=== PATIENT | female | born 1995 | race Caucasian/White ===

== ENCOUNTER → 2022-10-07 10:26 | Outpatient (BNVA) | payer BC, MEDICAID, SELFPAY | PROVIDERS: Visit Provider Nurse Practitioner Women's Health | DX: N92.6 Irregular menstruation, unspecified (principal) | CPT/HCPCS: 81000; 81025 ==

== ENCOUNTER → 2022-10-28 08:02 | Outpatient (BNVA) | payer BC, MEDICAID, SELFPAY | PROVIDERS: Visit Provider Obstetrics & Gynecology | DX: Z36.87 Encounter for antenatal screening for uncertain dates (principal) | CPT/HCPCS: 76817 ==

== ENCOUNTER → 2022-11-14 14:45 | Outpatient (BNVA) | payer BC, MEDICAID, SELFPAY | PROVIDERS: Visit Provider Obstetrics & Gynecology | DX: Z34.80 Encounter for supervision of other normal pregnancy, unspecified trimester (principal); Z78.9 Other specified health status | CPT/HCPCS: 80307; 81000; 87077; 87086; 87184; 87491; 87591; 87661; 88175 ==

== ENCOUNTER → 2022-12-11 10:10 | Outpatient (BNVA) | payer BC, MEDICAID, SELFPAY | PROVIDERS: Visit Provider Nurse Practitioner Women's Health | DX: Z34.80 Encounter for supervision of other normal pregnancy, unspecified trimester (principal); Z78.9 Other specified health status; O98.819 Other maternal infectious and parasitic diseases complicating pregnancy, unspecified trimester; A74.9 Chlamydial infection, unspecified | CPT/HCPCS: 81000; 85027; 86762; 86803; 86850; 86900; 87340; 87806 ==

== ENCOUNTER 2023-01-09 17:04 | Outpatient (CLI) | payer BC, MEDICAID, SELFPAY | END 2023-01-09 17:05 | disposition home or self-care (01) | PROVIDERS: Visit Provider Nurse Practitioner Women's Health | DX: O98.819 Other maternal infectious and parasitic diseases complicating pregnancy, unspecified trimester (principal); A74.9 Chlamydial infection, unspecified; N39.0 Urinary tract infection, site not specified | CPT/HCPCS: 87086; 87491; 87591 ==

== ENCOUNTER → 2023-01-14 09:45 | Outpatient (BNVA) | payer BC, MEDICAID, SELFPAY | PROVIDERS: Visit Provider Obstetrics & Gynecology | DX: Z34.92 Encounter for supervision of normal pregnancy, unspecified, second trimester (principal) | CPT/HCPCS: 76805 ==

== ENCOUNTER → 2023-01-16 09:30 | Outpatient (BNVA) | payer BC, MEDICAID, SELFPAY | PROVIDERS: Visit Provider Obstetrics & Gynecology | DX: Z34.92 Encounter for supervision of normal pregnancy, unspecified, second trimester (principal) | CPT/HCPCS: 81000 ==

== ENCOUNTER → 2023-02-09 14:25 | Outpatient (BNVA) | payer BC, MEDICAID, SELFPAY | PROVIDERS: Visit Provider Obstetrics & Gynecology | DX: Z36.2 Encounter for other antenatal screening follow-up (principal) | CPT/HCPCS: 76816 ==

== ENCOUNTER → 2023-02-11 13:10 | Outpatient (BNVA) | payer BC, MEDICAID, SELFPAY | PROVIDERS: Visit Provider Nurse Practitioner Women's Health | DX: Z34.80 Encounter for supervision of other normal pregnancy, unspecified trimester (principal) | CPT/HCPCS: 81000; 82950 ==

== ENCOUNTER → 2023-02-12 10:24 | Outpatient (BNVA) | payer BC, MEDICAID, SELFPAY | PROVIDERS: Visit Provider Obstetrics & Gynecology | DX: Z36.9 Encounter for antenatal screening, unspecified (principal) | CPT/HCPCS: 76815 ==

== ENCOUNTER → 2023-03-13 10:22 | Outpatient (BNVA) | payer BC, MEDICAID, SELFPAY | PROVIDERS: Visit Provider Obstetrics & Gynecology | DX: Z34.80 Encounter for supervision of other normal pregnancy, unspecified trimester (principal) | CPT/HCPCS: 81000 ==

== ENCOUNTER → 2023-03-27 11:00 | Outpatient (BNVA) | payer BC, MEDICAID, SELFPAY | PROVIDERS: Visit Provider Obstetrics & Gynecology | DX: Z34.80 Encounter for supervision of other normal pregnancy, unspecified trimester (principal) | CPT/HCPCS: 81000 ==

== ENCOUNTER → 2023-04-10 11:10 | Outpatient (BNVA) | payer BC, MEDICAID, SELFPAY | PROVIDERS: Visit Provider Obstetrics & Gynecology | DX: Z34.80 Encounter for supervision of other normal pregnancy, unspecified trimester (principal); R82.90 Unspecified abnormal findings in urine | CPT/HCPCS: 81000; 87086 ==

== ENCOUNTER → 2023-04-21 10:04 | Outpatient (BNVA) | payer BC, MEDICAID, SELFPAY | PROVIDERS: Visit Provider Nurse Practitioner Women's Health | DX: Z34.80 Encounter for supervision of other normal pregnancy, unspecified trimester (principal) | CPT/HCPCS: 81000; 85025; 86592; 87491; 87591; 87661 ==

== ENCOUNTER 2023-05-08 11:03 | Outpatient (CLI) | payer BC, MEDICAID, SELFPAY ==
[2023-05-08 11:03] VITALS: BMI 26.8
[2023-05-08 11:13] VITALS: BP 112/61; PULSE 75
[2023-05-08 11:28] VITALS: BP 112/64; PULSE 81
== END 2023-05-08 11:50 | disposition home or self-care (01) ==
LOC: OPOB 11:07 → OBGYN 11:08
PROVIDERS: Visit Provider Obstetrics & Gynecology
DX: O36.8190 Decreased fetal movements, unspecified trimester, not applicable or unspecified (principal); Z3A.00 Weeks of gestation of pregnancy not specified
CPT/HCPCS: 59025; 81000; 87081; 99211

== ENCOUNTER → 2023-05-15 09:52 | Outpatient (BNVA) | payer BC, MEDICAID, SELFPAY | PROVIDERS: Visit Provider Obstetrics & Gynecology | DX: Z34.80 Encounter for supervision of other normal pregnancy, unspecified trimester (principal) | CPT/HCPCS: 81000 ==

== ENCOUNTER → 2023-05-29 09:53 | Outpatient (BNVA) | payer BC, MEDICAID, SELFPAY | PROVIDERS: Visit Provider Nurse Practitioner Women's Health | DX: O98.819 Other maternal infectious and parasitic diseases complicating pregnancy, unspecified trimester; A74.9 Chlamydial infection, unspecified; Z78.9 Other specified health status | CPT/HCPCS: 81000 ==

== ENCOUNTER 2023-05-31 18:38 | Inpatient (IN) | payer BC, MEDICAID, SELFPAY ==
[2023-05-31 17:27] VITALS: RESP 15
[2023-05-31 17:38] VITALS: BMI 27.2
[2023-05-31 18:12] LABS: Basophils % 0.2 %; Eosinophils # 0.1 10^3/uL (0.0-0.8); Eosinophils % 1.3 %; Hematocrit 34.4 % (37.0-47.0); Hemoglobin 11.7 g/dL (11.5-15.3); Lymphocytes # 1.7 10^3/uL (0.8-4.8); Lymphocytes % 16.7 %; Mean Corpuscular Hemoglobin 30.7 pg (28.0-34.0); Mean Corpuscular Volume 90.3 fl (81-99); Mean Platelet Volume 9.9 fL (7.4-10.4); Monocytes # 0.7 10^3/uL (0.2-0.9); Monocytes % 6.8 %; Neutrophils # 7.41 10^3/uL (1.8-7.7); Neutrophils % 73.9 %; Nucleated Red Blood Cells % 0 %; Platelet Count 139 10^3/cmm (130-400); Red Blood Count 3.81 10^6/uL (4.1-5.3); Red Cell Distribution Width 13.2 % (12.1-15.1)
[2023-05-31 18:16] LABS: Nitrazine Paper, PH Positive
--- NOTE | 2023-05-31 18:50 | P.HP_ITS ---
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 A2 EDC June 03, 2023 No complications Presented to L&D c/o clear fluid leakage Mild UCs No bleeding + active movements PMHx: none PSHx: wisdom teeth Meds: famotidine Vitamins NKDA Present Details : 2 Para: 1 Labs Rubella: Immune RPR: Negative GBS: Negative Medications/Allergies Home Medications Medication Instructions Recorded Confirmed Last Taken Type prenat.vits,danette,neh-udjq-nysqd 1 tab PO DAILY #90 tabs 01/21/23 05/29/23 Unknown Rx famotidine 20 mg tablet 20 mg PO BID PRN heartburn #60 tabs 03/13/23 05/29/23 Unknown Rx Allergies Allergy/AdvReac Type Severity Reaction Status Date / Time No Known Allergies Allergy Verified 05/29/23 09:55 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: Medical History No pertinent past medical history neghx: htn,dm,thyroid,dvt/pe PCP: [facility] Surgical History Hx of wisdom tooth extraction (~2017) Family History Father Diabetes Mother Hypertension Thyroid disease Denies family history of Colon cancer Ovarian cancer Heart disease Hypercholesteremia Breast cancer Uterine cancer Stroke History History History 4 Term 1 0 Miscarriages/Ectopic 2 Living Children 1 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 Estimated Delivery Date Method Current WG Current Estimate 06/03/23 Ultrasound #1 39w 5d Other Estimates 05/28/23 LMP (Uncertain) 40w 4d Specific Issues/Plans * UNKNOWN LMP-- 8wk sonogram dates the * Chlamydia; negative at 34 wks Vitals/I&O/Wt Last Vital Signs Pulse 92 06/01/23 01:36 Resp 15 05/31/23 17:27 BP 126/67 06/01/23 01:36 O2 Del Method Room Air 05/31/23 17:38 05/31/23 05/31/23 06/01/23 14:59 22:59 06:59 Intake Total 3.517 / 3.517 Balance 3.517 / 3.517 Weight last 48 hrs Weight 169 lb Physical Exam Narrative: Weight 168 lbs VS normal Comfortable Awake, alert, appropriate Lungs: clear Cor: RRR Abd: soft Pelvic: + gross clear fluid Cx: 1 cm Ext: normal External monitor: occasional UCs heart tracing good variability, + accelerations Data 05/31/23 17:50 A&P Assessment and plan (1) Supervision of other normal : (2) Spontaneous rupture of membranes: 39 w 4 d SROM Not in labor Plan admit Discussed with patient possible Pitocin augmentation Patient agrees to plan Attestations Medical Necessity Statement*: patient at 39+ weeks gestation with spontaneous rupture of membranes Coding Level of Care Code Acute Code for Chg Fwd Diagnoses Supervision of other normal Z34.80 Spontaneous rupture of membranes Time Spent (min) 60
[2023-05-31 18:59] VITALS: BP 116/65; PULSE 80
[2023-05-31 22:57] VITALS: BP 118/66; PULSE 72
[2023-05-31] MEDS: dextrose 5%-lactated ringers 1,000 ML 125 ML IV (23:30)
[2023-05-31 23:56] VITALS: BP 100/52; PULSE 62
[2023-06-01] VITALS (36 sets, daily range): BP systolic 96–132; BP diastolic 50–79; PULSE 64–133; RESP 15–16; TEMP 36.4–36.7; O2SAT 84–100
[2023-06-01] MEDS: lactated ringers 1,000 ML 999 ML IV (01:37)
--- NOTE | 2023-06-01 02:25 | P.ANESASSM_ITS ---
Pre-Anesthetic Assessment Height/Weight: Height 1.68 m Weight 76.657 kg Pulse Resp BP Pulse Ox O2 Del Method 102 H 15 124/72 100 Room Air 06/01/23 02:43 05/31/23 17:27 06/01/23 02:43 06/01/23 02:43 05/31/23 17:38 Preop Diagnosis: IUP labor epidural Familial anesthetic complications: none Was Beta Gregory taken within 24 hours: N/A Was Clonidine taken within 24 hours: N/A Last Intake: 10:00 Social No alcohol and No tobacco Exam alert and oriented x 3 Airway Submandibular: within normal limits Cervical ROM: within normal limits Mallampati: Class III Dentition: full History/ROS No significant complaints Anesthetic Plan ASA status: 2 Anesthesia: Anesthesia Evaluation, General (emergency use) and Regional (specify below) (epidural) Medications/Allergies Home Medications Medication Instructions Recorded Confirmed Last Taken Type prenat.vits,danette,fax-isft-wziyo 1 tab PO DAILY #90 tabs 01/21/23 05/29/23 Unknown Rx famotidine 20 mg tablet 20 mg PO BID PRN heartburn #60 tabs 03/13/23 05/29/23 Unknown Rx Allergies Allergy/AdvReac Type Severity Reaction Status Date / Time No Known Allergies Allergy Verified 05/29/23 09:55 Current Medications Generic Name Dose Route Start Last Admin Trade Name Adenq PRN Reason Stop Dose Admin Dextrose/Lactated Ringer's 1,000 mls @ 125 mls/hr 05/31/23 17:30 05/31/23 23: 30 Dextrose 5%-Lactated Ringers IV 125 mls/hr .Q8H MALCOLM Administration Oxytocin 30 unit in 500 mls @ 1 mls/hr 05/31/23 22:15 06/01/23 01:35 Pitocin IV Not Given .Q24H MALCOLM Protocol 1 MILLIUNIT/MIN Oxytocin 30 unit/ Sodium 503 mls @ 1 mls/hr 05/31/23 22:15 06/01/23 01:04 Chloride IV 5 mls/hr .Q24H MALCOLM 5 mls/hr Titration Protocol Lactated Ringer's 1,000 mls @ 999 mls/hr 06/01/23 01:34 06/01/23 01:37 Lactated Ringers IV 999 mls/hr .Q1H1M PRN Administration See label comments PFSH Anesthesia Medical History No pertinent past medical history neghx: htn,dm,thyroid,dvt/pe PCP: [facility] Surgical History Hx of wisdom tooth extraction (~2018) Family History Father Diabetes Mother Hypertension Thyroid disease Denies family history of Colon cancer Ovarian cancer Heart disease Hypercholesteremia Breast cancer Uterine cancer Stroke Female Reproductive History : 2 Data Anesthesia 05/31/23 17:50 Short CBC 05/31/23 Range/Units 17:50 WBC 10.0 (4.0-10.0) 10^3/uL Hgb 11.7 (11.5-15.3) g/dL Hct 34.4 L (37.0-47.0) % MCV 90.3 (81-99) fl Plt Count 139 (130-400) 10^3/cmm Neut % (Auto) 73.9 % Neut # (Auto) 7.41 (1.8-7.7) 10^3/uL Cardiac Studies: No Data to Display
--- NOTE | 2023-06-01 02:40 | ANES.PROC ---
Anesthesia Procedures Procedure/Date: 06/01/23 Epidural: Time Out Performed: Yes Consents Signed: Procedure Consent Consent: from patient and risks and benefits reviewed Lumbar Level: L3-L4 Epidural position: sitting Epidural procedure: sterile prep of area, 1% lidocaine to numb the area, 18 g needle, negative for paresthesia passed, test dose given, 1.5% xylocaine 1:200k epi, placed PCEA, no systemic response, sterile dressing applied, L.U.D. no apparent complications and 0.2% Ropiavacaine @ mls/hr (10) Additional Comments: negative blood/CSF aspiration. ELIAS at 4, taped at 12 at skin.
--- NOTE | 2023-06-01 05:30 | PM.OBGYPN ---
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: Interval history: June 01, 2023, 0530 DELIVERY NOTE , vigorous female infant Normal placenta and cord Cord gases and blood obtained No episiotomy / lacerations EBL: 300 cc No complications Labor: Station: +1 Amniotic Membrane Status: Ruptured Monitor Mode: External Contraction Pattern: Regular Status: Category II Vitals/I&O/Wt Last Vital Signs Temp 98.2 F 06/02/23 04:15 Pulse 66 06/02/23 12:30 Resp 15 06/02/23 12:30 BP 119/75 06/02/23 12:30 Pulse Ox 97 06/02/23 12:30 O2 Del Method Room Air 06/02/23 10:00 Physical Exam Urinary Catheter Management: Antonio: Cath Placed During This Visit: yes, but has since been removed by the nurse Reason for Continuing Indwelling Catheter: Decision to DC Catheter Urinary Catheter Date of Insertion: 06/01/23 Urinary Catheter Time of Insertion: 04:14 Date Urinary Catheter Removed: 06/01/23 Time Urinary Catheter Discontinued: 05:15 Data 06/01/23 18:10 A&P Assessment and plan (1) Vaginal delivery: Attestations Medical Necessity Statement*: patient at term, in labor, vaginal delivery Coding Level of Care Code Acute Code for Chg Fwd Diagnoses Vaginal delivery O80 Time Spent (min) 60
--- NOTE | 2023-06-01 05:30 | PM.DELIVERY ---
Delivery Note: Date of delivery: June 01, 2023 Pre-delivery diagnoses: 39 w 4 d spontaneous rupture of membranes pitocin augmentation of labor Post-delivery diagnoses: same Procedure: Spontaneous vaginal delivery Op report anesthesia: Epidural Delivering Physician: Rainer Gomez MD Estimated blood loss (mL): 300 Findings: vigorous female infant normal placenta and cord cord gases and blood obtained no complications Post-Delivery Status: good History History History 4 Term 1 0 Miscarriages/Ectopic 2 Living Children 1 A&P Assessment and plan (1) Vaginal delivery: Coding Level of Care Code Acute Code for Chg Fwd Diagnoses Vaginal delivery O80 Time Spent (min) 60
--- NOTE | 2023-06-01 09:46 | PC.NURSE ---
pt up to bathroom. void. lemuel care by pt. pt then ambulated to OB9. oriented to room/call light. proud parent pack and feeding log discussed.
[2023-06-01] MEDS: docusate sodium 100 mg Capsule PO ×2 (10:05→18:34)
[2023-06-01] MEDS: prenatal vitamin Capsule 1 CAP PO (10:05)
[2023-06-01] MEDS: ibuprofen 800 mg tablet PO ×3 (10:05→20:02)
[2023-06-01] MEDS: benzocaine-menthol 78 gm Canister 1 SPRAY TOPICAL (10:06)
[2023-06-01] MEDS: lanolin oint 7 gm 1 APPLIC TOPICAL (10:06)
--- NOTE | 2023-06-01 11:04 | ANE.PACU2 ---
Inpatient post-anesthesia follow up: Airway intact: Yes Vital signs: Temperature 98.0 F Pulse Rate 89 Respiratory Rate 16 Blood Pressure 105/59 Pulse Oximetry 98 Oxygen Delivery Me thod Room Air Oxygen Flow Rate Fraction of Inspir ed Oxygen Hydration adequate: Yes Nausea and vomiting: No Pain level: 2 Mental status: Baseline
[2023-06-01 18:55] LABS: Hemoglobin 10.3 g/dL (11.5-15.3); Mean Corpuscular HGB Conc 34.3 g/dL (30.0-36.0); Mean Corpuscular Hemoglobin 31.5 pg (28.0-34.0); Mean Corpuscular Volume 91.7 fl (81-99); Mean Platelet Volume 10.3 fL (7.4-10.4); Platelet Count 143 10^3/cmm (130-400); Red Blood Count 3.27 10^6/uL (4.1-5.3); White Blood Count 11.8 10^3/uL (4.0-10.0)
[2023-06-02 04:15] VITALS: BP 101/62; PULSE 69; RESP 16; TEMP 36.8
[2023-06-02] MEDS: docusate sodium 100 mg Capsule PO (08:35)
[2023-06-02] MEDS: ibuprofen 800 mg tablet PO (08:35)
[2023-06-02] MEDS: prenatal vitamin Capsule 1 CAP PO (08:35)
[2023-06-02 10:00] VITALS: BP 105/68; PULSE 64; RESP 15; O2SAT 98
[2023-06-02 12:30] VITALS: BP 119/75; PULSE 66; RESP 15; O2SAT 97
--- NOTE | 2023-06-02 12:35 | P.PN_ITS ---
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 fundus firm Ext: no edema; nontender Urinary Catheter Management: Antonio: Cath Placed During This Visit: yes, but has since been removed by the nurse Reason for Continuing Indwelling Catheter: Decision to DC Catheter Urinary Catheter Date of Insertion: 06/01/23 Urinary Catheter Time of Insertion: 04:14 Date Urinary Catheter Removed: 06/01/23 Time Urinary Catheter Discontinued: 05:15 Data 06/01/23 18:10 A&P Assessment and plan (1) Vaginal delivery: PPD #1 doing well discharge home today instructions and precautions given call/return if fever, chills, headache, blurry vision, nausea, vomiting, abdominal pain; vaginal bleeding or discharge; shortness of breath, chest pain, leg pains or swelling; inability to void, perineal pain or swelling; feelings of depression or mood changes; thoughts of suicide or harming others; inability to care for baby. f/u in 6 weeks or PRN Attestations Medical Necessity Statement*: patient s/p vaginal delivery, plan discharge home today Coding Level of Care Code Acute Code for Chg Fwd Diagnoses Vaginal delivery O80 Time Spent (min) 30
--- NOTE | 2023-06-02 12:35 | P.DS_ITS ---
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 A2 at 39 w 4 d presented with spontaneous rupture of membranes Hospital Course Hospital Course patient underwent pitocin augmentation of labor had vaginal delivery June 01, 2023 did well without any complications Information Peripartum Data: Infant Delivery Method: Vaginal Physical Exam Const: COMMON NORMALS: no acute distress, healthy appearing and alert Resp: COMMON NORMALS: normal respiratory effort, No use of accessory muscles and clear to auscultation bilaterally AUSCULTATION: clear to auscultation bilaterally Cardio: COMMON NORMALS: regular rate and regular rhythm RATE: regular rate RHYTHM: regular rhythm GI: COMMON NORMALS: Normal to inspection, nondistended, normoactive bowel sounds present, Soft to palpation and non-tender PALPATION: Yes Soft to palpation Neuro: SENSORIUM/ORIENTATION: Yes alert Urinary Catheter Management: Antonio: Cath Placed During This Visit: yes, but has since been removed by the nurse Reason for Continuing Indwelling Catheter: Decision to DC Catheter Urinary Catheter Date of Insertion: 06/01/23 Urinary Catheter Time of Insertion: 04:14 Date Urinary Catheter Removed: 06/01/23 Time Urinary Catheter Discontinued: 05:15 History History History 4 Term 1 0 Miscarriages/Ectopic 2 Living Children 1 Discharge Data Studies Completed and Pending Laboratory Results WBC 11.8 10^3/uL (4.0-10.0) H 06/01/23 18:10 RBC 3.27 10^6/uL (4.1-5.3) L 06/01/23 18:10 Hgb 10.3 g/dL (11.5-15.3) L 06/01/23 18:10 Hct 30.0 % (37.0-47.0) L 06/01/23 18:10 MCV 91.7 fl (81-99) 06/01/23 18:10 MCH 31.5 pg (28.0-34.0) 06/01/23 18:10 MCHC 34.3 g/dL (30.0-36.0) 06/01/23 18:10 RDW 13.0 % (12.1-15.1) 06/01/23 18:10 Plt Count 143 10^3/cmm (130-400) 06/01/23 18:10 MPV 10.3 fL (7.4-10.4) 06/01/23 18:10 Neut % (Auto) 73.9 % 05/31/23 17:50 Lymph % (Auto) 16.7 % 05/31/23 17:50 Graves % (Auto) 6.8 % 05/31/23 17:50 Eos % (Auto) 1.3 % 05/31/23 17:50 Baso % (Auto) 0.2 % 05/31/23 17:50 Neut # (Auto) 7.41 10^3/uL (1.8-7.7) 05/31/23 17:50 Lymph # (Auto) 1.7 10^3/uL (0.8-4.8) 05/31/23 17:50 Graves # (Auto) 0.7 10^3/uL (0.2-0.9) 05/31/23 17:50 Eos # (Auto) 0.1 10^3/uL (0.0-0.8) 05/31/23 17:50 Baso # (Auto) 0.0 10^3/uL (0.0-0.1) 05/31/23 17:50 Nucleated RBC % (auto) 0 % 05/31/23 17:50 Nucleated RBCs # 0.0 /100WBC 05/31/23 17:50 Fluid pH (paper) Positive H 05/31/23 17:30 Procedures Performed vaginal delivery Vitals Last Vital Signs Temp 98.2 F 06/02/23 04:15 Pulse 66 06/02/23 12:30 Resp 15 06/02/23 12:30 BP 119/75 06/02/23 12:30 Pulse Ox 97 06/02/23 12:30 O2 Del Method Room Air 06/02/23 10:00 Discharge Plan Discharge Patient Disposition: Home Condition: Stable Prescriptions: Continued famotidine 20 mg tablet 20 mg PO BID PRN (Reason: heartburn) Qty: 60 2RF prenat.vits,danette,eii-xscw-ambwf Tablet 1 tab PO DAILY Qty: 90 3RF Discharge Orders: Discharge Order (Routine); Ordered 06/02/23 Ordered By: Rainer Gomez Referrals: Gumaro Guillermo MD [Physician] - 07/13/23 11:00 am (Patient to see Dr. Guillermo for six week check up on 07-13-23 at 11 AM) Discharge Diet: Usual diet Discharge Activity: Resume usual activity Patient Instructions: Depression (DC), Opioid Safety (DC), Preeclampsia and Eclampsia After Delivery (GEN), Hemorrhage (DC), OB Discharge Report, OB Food/Drug Interaction Guide, OB Care at Home, Opioid Safety, OB Vaginal Deliveries - [facility], Abnormal Bleeding Discharge Attestations DINING ROOM CAPTAIN Time Spent in Discharge Care*: less than 30 min Coding Level of Care Code Acute Code for Chg Fwd Diagnoses Vaginal delivery O80 Time Spent (min) 20
== END 2023-06-02 12:45 | disposition home or self-care (01) | DRG 807 ==
LOC: OPOB 18:39 → OBGYN 18:39
PROVIDERS: Admitting Provider Obstetrics & Gynecology; Visit Provider Obstetrics & Gynecology
DX: O80 Encounter for full-term uncomplicated delivery (principal); Z37.0 Single live birth; Z3A.39 39 weeks gestation of pregnancy
CPT/HCPCS: 36415; 51702; 59025; 59409; 83986; 85025; 85027; 99211; J7040; J7120; J7121

== ENCOUNTER 2023-09-25 17:24 | Emergency (ER) | payer MEDICAID, SELFPAY ==
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
[2023-09-25 17:45] VITALS: BP 120/81; PULSE 84; RESP 18; TEMP 36.7; O2SAT 98
== END 2023-09-25 17:56 | disposition home or self-care (01) ==
PROVIDERS: Emergency Provider Internal Medicine; PCP Pediatrics Adolescent Medicine
DX: Z04.1 Encounter for examination and observation following transport accident (principal); V59.40XA Driver of pick-up truck or van injured in collision with unspecified motor vehicles in traffic accident, initial encounter
CPT/HCPCS: 99282

== ENCOUNTER 2023-11-11 13:38 | Emergency (ER) | payer MEDICAID, SELFPAY ==
[2023-11-11 14:17] VITALS: BMI 25.8
[2023-11-11 14:19] VITALS: BP 97/65; PULSE 96; RESP 16; TEMP 37.1; O2SAT 99
[2023-11-11 14:55] LABS: Basophils % 0.2 %; Eosinophils # 0.1 10^3/uL (0.0-0.8); Eosinophils % 1.3 %; Hematocrit 45.2 % (36-47); Lymphocytes # 0.8 10^3/uL (0.8-4.8); Lymphocytes % 9.5 %; Mean Corpuscular HGB Conc 34.3 g/dL (30-55); Mean Corpuscular Hemoglobin 29.9 pg (27-33); Mean Corpuscular Volume 87.1 fl (85-98); Mean Platelet Volume 9.5 fL (7.4-10.4); Monocytes # 0.5 10^3/uL (0.2-0.9); Monocytes % 6.3 %; Neutrophils # 6.99 10^3/uL (1.8-7.7); Neutrophils % 82.6 %; Nucleated Red Blood Cells % 0 %; Platelet Count 195 10^3/cmm (157-399); Red Blood Count 5.19 10^6/uL (3.85-5.65); Red Cell Distribution Width 11.9 % (12.1-15.1); White Blood Count 8.46 10^3/uL (3.29-11.43)
[2023-11-11 15:17] LABS: HCG, Serum Qual Negative (Negative)
[2023-11-11 15:21] LABS: Alanine Aminotransferase 16 U/L (0-33); Albumin Level 4.4 g/dL (3.5-5.2); Alkaline Phosphatase 155 U/L (35-105); Anion Gap 15.1 (5-19); Aspartate Amino Transferase 17 U/L (0-32); Blood Urea Nitrogen 21 mg/dL (6-20); Calcium 9.4 mg/dL (8.5-10.5); Carbon Dioxide 25 mmol/L (22-29); Chloride 104 mmol/L (98-107); Creatinine Clr Calc Pharmacy 144.9238; Globulin 2.9 g/dL (1.3-4.6); Glomerular Filtration Rate 120.8 mL/min (90-130); Glucose 91 mg/dL (65-115); Lipase 23 U/L (13-60); Osmolality Calculated 293 mOsm/kg (285-295); Potassium 4.1 mmol/L (3.5-5.1); Sodium 140 mmol/L (136-145); Total Bilirubin 0.4 mg/dL (0.15-1.2); Total Protein 7.3 g/dL (6.6-8.7)
--- NOTE | 2023-11-11 16:18 | ED_ITS ---
Documented by User: PREM Gaytan 11/11/23 17:52 HPI - Abdominal Pain 2 General: Chief Complaint: Abdominal Pain Stated Complaint: abd pain, N/V Time Seen by Provider: 11/11/23 16:17 History of Present Illness: 28-year-old female comes in today for co mplaints of abdominal pain generalized radiates to her back bilaterally. Patient reports pain started this morning about 6:00 with episodes of nausea and 3 episodes of emesis. Patient is also noted some blood in her stool on and off for the last 5 months after delivery of her child. Patient denies any surgeries. Patient has had 2 births with the first 1 being 5 years ago the last 1 being 5 months ago. Patient appears nontoxic. Patient appears in mild pain at rest. MD elicited complaint: abdominal pain Pertinent past history: gastrointestinal bleeding Onset (ago): hour(s) Pain Consistency: intermittent Location: Diffuse Severity: moderate Pain scale (0-10): 7 Quality: cramping and aching Radiation: bilateral flank Exacerbating factors: nothing Relieving factors: nothing Associated Symptoms: Reports hematochezia, nausea and vomiting; Denies constipation and diarrhea Related Data: Date of Last Menstrual Period: 11/10/23 Review of Systems 2 General: Reports: 10 or more systems reviewed and unremarkable except in HPI and below GI: Reports: abdominal pain, nausea, vomiting and hematochezia; Denies: diarrhea or constipation PFSH ED 2 PFSH: Medical History No pertinent past medical history neghx: htn,dm,thyroid,dvt/pe PCP: [facility] Surgical History Hx of wisdom tooth extraction (~2018) Family History Father Diabetes Mother Hypertension Thyroid disease Denies family history of Colon cancer Ovarian cancer Heart disease Hypercholesteremia Breast cancer Uterine cancer Stroke Female Reproductive History: Date of last menstrual period: 11/10/23 Physical Exam 2 Const: COMMON NORMALS: alert HENMT: COMMON NORMALS: normocephalic and Normal external nose present HEAD & SCALP: normocephalic NOSE: Normal external nose present THROAT: p osterior oropharynx normal Neck/C-Spine: COMMON NORMALS: full ROM Resp: COMMON NORMALS: normal respiratory effort and clear to auscultation bilaterally AUSCULTATION: clear to auscultation bilaterally Cardio: COMMON NORMALS: regular rate and regular rhythm RATE: regular rate RHYTHM: regular rhythm GI: COMMON NORMALS: Soft to palpation AUSCULTATION: Yes normoactive bowel sounds PALPATION: Yes Soft to palpation, Yes Tenderness to palpation present (GI) (Generalized mild), No Guarding due to palpation present (GI) and No Rebound tenderness present : BLADDER/KIDNEY EXAM: Yes CVA tenderness Back/Pelvis: COMMON NORMALS: thoracic and lumbar spine normal to inspection GENERAL BACK: Yes CVA tenderness CVA tenderness: left Extremity: COMMON NORMALS: no pedal edema Neuro: SENSORIUM/ORIENTATION: Yes alert Skin: COMMON NORMALS: turgor normal GENERAL SKIN EXAM: turgor normal Course 2 Vital Signs: Vital signs: Vital Signs Temperature 98.7 F 11/11/23 17:59 Pulse Rate 80 11/11/23 17:59 Respiratory Rate 16 11/11/23 17:59 Blood Pressure 113/79 11/11/23 17:59 Pulse Oximetry 99 11/11/23 17:59 Oxygen Delivery Me thod Room Air 11/11/23 16:25 MDM - Abdominal Pain Medical Decision Making 28-year-old female comes in today with complaints of generalized abdominal pain, 3 episodes of emesis, and blood in her stool starting this morning around 6 AM. Patient reports the blood in her stool has been recurrent over the last 5 months after the delivery of her child which she relates to a hemorrhoid. On exam abdomen soft with normal active bowel sounds. Patient reports generalized tenderness, no guarding or rebound. Patient reports left CVA tenderness on percussion. Vital signs are normal. Differential diagnosis includes but not limited to gallbladder disease, colitis, diverticulitis, appendicitis, gastroenteritis, renal calculi, UTI. CBC and CMP and urinalysis were normal. CT of the abdomen suggested enteritis. Recommend patient be treated for gastroenteritis. Since patient's been having recurrent blood in stools for the last 5 to 6 months recommended follow-up for colonoscopy for further evaluation of blood in stool. Patient reported understanding and agreed to plan. Case management request was placed to assist patient with follow-up for blood in stool. Lab Data 11/11/23 14:35 11/11/23 14:35 Labs/Radiology: Radiology Impressions Abdomen/Pelvis CT 11/11/23 16:22 IMPRESSION: Findings suggestive of enteritis. Laboratory Results WBC 8.46 10^3/uL (3.29-11.43) 11/11/23 14:35 RBC 5.19 10^6/uL (3.85-5.65) 11/11/23 14:35 Hgb 15.50 g/dL (11.27-16.99) 11/11/23 14:35 Hct 45.2 % (36-47) 11/11/23 14:35 MCV 87.1 fl (85-98) 11/11/23 14:35 MCH 29.9 pg (27-33) 11/11/23 14:35 MCHC 34.3 g/dL (30-55) 11/11/23 14:35 RDW 11.9 % (12.1-15.1) L 11/11/23 14:35 Plt Count 195 10^3/cmm (157-399) 11/11/23 14:35 MPV 9.5 fL (7.4-10.4) 11/11/23 14:35 Neut % (Auto) 82.6 % 11/11/23 14:35 Lymph % (Auto) 9.5 % 11/11/23 14:35 Traill % (Auto) 6.3 % 11/11/23 14:35 Eos % (Auto) 1.3 % 11/11/23 14:35 Baso % (Auto) 0.2 % 11/11/23 14:35 Neut # (Auto) 6.99 10^3/uL (1.8-7.7) 11/11/23 14:35 Lymph # (Auto) 0.8 10^3/uL (0.8-4.8) 11/11/23 14:35 Traill # (Auto) 0.5 10^3/uL (0.2-0.9) 11/11/23 14:35 Eos # (Auto) 0.1 10^3/uL (0.0-0.8) 11/11/23 14:35 Baso # (Auto) 0.0 10^3/uL (0.0-0.1) 11/11/23 14:35 Nucleated RBC % (auto) 0 % 11/11/23 14:35 Nucleated RBCs # 0.0 /100WBC 11/11/23 14:35 Sodium 140 mmol/L (136-145) 11/11/23 14:35 Potassium 4.1 mmol/L (3.5-5.1) 11/11/23 14:35 Chloride 104 mmol/L (98-107) 11/11/23 14:35 Carbon Dioxide 25 mmol/L (22-29) 11/11/23 14:35 Anion Gap 15.1 (5-19) 11/11/23 14:35 BUN 21 mg/dL (6-20) H 11/11/23 14:35 Creatinine 0.6 mg/dL (0.5-0.9) 11/11/23 14:35 GFR Calculation 120.8 mL/min (90-130) 11/11/23 14:35 Glucose 91 mg/dL (65-115) 11/11/23 14:35 Calculated Osmolality 293 mOsm/kg (285-295) 11/11/23 14:35 Calcium 9.4 mg/dL (8.5-10.5) 11/11/23 14:35 Total Bilirubin 0.4 mg/dL (0.15-1.2) 11/11/23 14:35 AST 17 U/L (0-32) 11/11/23 14:35 ALT 16 U/L (0-33) 11/11/23 14:35 Alkaline Phosphatase 155 U/L (35-105) H 11/11/23 14:35 Total Protein 7.3 g/dL (6.6-8.7) 11/11/23 14:35 Albumin 4.4 g/dL (3.5-5.2) 11/11/23 14:35 Globulin 2.9 g/dL (1.3-4.6) 11/11/23 14:35 Lipase 23 U/L (13-60) 11/11/23 14:35 HCG, Qual Negative (Negative) 11/11/23 14:35 Urine Color Yellow (Yellow) 11/11/23 16:23 Urine Appearance Clear (CLEAR) 11/11/23 16:23 Urine pH 5 (5-7) 11/11/23 16:23 Ur Specific [place] 1.020 (1.005-1.030) 11/11/23 16:23 Urine Protein Neg (Negative) 11/11/23 16:23 Urine Glucose (UA) Norm (Normal) 11/11/23 16:23 Urine Ketones 1+ (Negative) H 11/11/23 16:23 Urine Blood Neg (Negative) 11/11/23 16:23 Urine Nitrate Negative (Negative) 11/11/23 16:23 Urine Bilirubin Neg (Negative) 11/11/23 16:23 Urine Urobilinogen Norm mg/dL (Negative) 11/11/23 16:23 Ur Leukocyte Esterase Negative (Negative) 11/11/23 16:23 All radiology interpretation(s) finalized by discharge Discharge Plan Discharge Patient Disposition: Home Clinical Impression: Gastroenteritis, Blood in stool Condition: Stable Prescriptions: New ondansetron 4 mg tablet,disintegrating 4 mg PO Q8H PRN (Reason: nausea and vomiting) Qty: 10 0RF dicyclomine 20 mg tablet 20 mg PO TID PRN (Reason: abdominal pain) Qty: 10 0RF No Action 28 mg iron- 800 mcg Tablet 1 tab PO DAILY Discharge Orders: Discharge ED (Routine); Ordered 11/11/23 Ordered By: Brian Mccracken Referrals: Belinda Child MD [Primary Care Provider] - Discharge Diet: Usual diet Discharge Activity: Increase activity as tolerated Patient Instructions: Gastroenteritis (ED) Activity Restrictions/Additional Instructions: Drink plenty of water and fluids. Use ondansetron 1 tablet every 8 hours as needed for nausea and vomiting. Use dicyclomine 20 mg every 8 hours as needed for abdominal pain. Drink frequent sips of fluids to stay hydrated. Follow-up with primary care. Case management will contact you regarding follow-up appointment with surgeon for further evaluation of blood in stool that has been recurrent. Return to ED for new concerns or worsening symptoms such as fever greater than 100.4, worsening abdominal pain, or inability to hold fluids down. Coding Level of Care Code ED Acrobatic Dancer for Chg Fwd Documented by User: Wilfrid Hickman DO 11/11/23 18:07 HPI - Abdominal Pain 2 General: Chief Complaint: Abdominal Pain Stated Complaint: abd pain, N/V Time Seen by Provider: 11/11/23 16:17 [facility] ED 2 PFS: Medical History No pertinent past medical history neghx: htn,dm,thyroid,dvt/pe PCP: [facility] Surgical History Hx of wisdom tooth extraction (~2018) Family History Father Diabetes Mother Hypertension Thyroid disease Denies family history of Colon cancer Ovarian cancer Heart disease Hypercholesteremia Breast cancer Uterine cancer Stroke Course 2 Vital Signs: Vital signs: Vital Signs Temperature 98.7 F 11/11/23 17:59 Pulse Rate 80 11/11/23 17:59 Respiratory Rate 16 11/11/23 17:59 Blood Pressure 113/79 11/11/23 17:59 Pulse Oximetry 99 11/11/23 17:59 Oxygen Delivery Me thod Room Air 11/11/23 16:25 MDM - Abdominal Pain Medical Decision Making 28-year-old female comes in today with complaints of generalized abdominal pain, 3 episodes of emesis, and blood in her stool starting this morning around 6 AM. Patient reports the blood in her stool has been recurrent over the last 5 months after the delivery of her child which she relates to a hemorrhoid. On exam abdomen soft with normal active bowel sounds. Patient reports generalized tenderness, no guarding or rebound. Patient reports left CVA tenderness on percussion. Vital signs are normal. Differential diagnosis includes but not limited to gallbladder disease, colitis, diverticulitis, appendicitis, gastroenteritis, renal calculi, UTI. CBC and CMP and urinalysis were normal. CT of the abdomen suggested enteritis. Recommend patient be treated for gastroenteritis. Since patient's been having recurrent blood in stools for the last 5 to 6 months recommended follow-up for colonoscopy for further evaluation of blood in stool. Patient reported understanding and agreed to plan. Case management request was placed to assist patient with follow-up for blood in stool. Chart reviewed and patient discussed with midlevel. Agree with assessment and plan. Medical Records I reviewed the patient's medical records. Lab Data I reviewed the patient's lab results. 11/11/23 14:35 11/11/23 14:35 Labs/Radiology: Radiology Impressions Abdomen/Pelvis CT 11/11/23 16:22 IMPRESSION: Findings suggestive of enteritis. Laboratory Results WBC 8.46 10^3/uL (3.29-11.43) 11/11/23 14:35 RBC 5.19 10^6/uL (3.85-5.65) 11/11/23 14:35 Hgb 15.50 g/dL (11.27-16.99) 11/11/23 14:35 Hct 45.2 % (36-47) 11/11/23 14:35 MCV 87.1 fl (85-98) 11/11/23 14:35 MCH 29.9 pg (27-33) 11/11/23 14:35 MCHC 34.3 g/dL (30-55) 11/11/23 14:35 RDW 11.9 % (12.1-15.1) L 11/11/23 14:35 Plt Count 195 10^3/cmm (157-399) 11/11/23 14:35 MPV 9.5 fL (7.4-10.4) 11/11/23 14:35 Neut % (Auto) 82.6 % 11/11/23 14:35 Lymph % (Auto) 9.5 % 11/11/23 14:35 Traill % (Auto) 6.3 % 11/11/23 14:35 Eos % (Auto) 1.3 % 11/11/23 14:35 Baso % (Auto) 0.2 % 11/11/23 14:35 Neut # (Auto) 6.99 10^3/uL (1.8-7.7) 11/11/23 14:35 Lymph # (Auto) 0.8 10^3/uL (0.8-4.8) 11/11/23 14:35 Traill # (Auto) 0.5 10^3/uL (0.2-0.9) 11/11/23 14:35 Eos # (Auto) 0.1 10^3/uL (0.0-0.8) 11/11/23 14:35 Baso # (Auto) 0.0 10^3/uL (0.0-0.1) 11/11/23 14:35 Nucleated RBC % (auto) 0 % 11/11/23 14:35 Nucleated RBCs # 0.0 /100WBC 11/11/23 14:35 Sodium 140 mmol/L (136-145) 11/11/23 14:35 Potassium 4.1 mmol/L (3.5-5.1) 11/11/23 14:35 Chloride 104 mmol/L (98-107) 11/11/23 14:35 Carbon Dioxide 25 mmol/L (22-29) 11/11/23 14:35 Anion Gap 15.1 (5-19) 11/11/23 14:35 BUN 21 mg/dL (6-20) H 11/11/23 14:35 Creatinine 0.6 mg/dL (0.5-0.9) 11/11/23 14:35 GFR Calculation 120.8 mL/min (90-130) 11/11/23 14:35 Glucose 91 mg/dL (65-115) 11/11/23 14:35 Calculated Osmolality 293 mOsm/kg (285-295) 11/11/23 14:35 Calcium 9.4 mg/dL (8.5-10.5) 11/11/23 14:35 Total Bilirubin 0.4 mg/dL (0.15-1.2) 11/11/23 14:35 AST 17 U/L (0-32) 11/11/23 14:35 ALT 16 U/L (0-33) 11/11/23 14:35 Alkaline Phosphatase 155 U/L (35-105) H 11/11/23 14:35 Total Protein 7.3 g/dL (6.6-8.7) 11/11/23 14:35 Albumin 4.4 g/dL (3.5-5.2) 11/11/23 14:35 Globulin 2.9 g/dL (1.3-4.6) 11/11/23 14:35 Lipase 23 U/L (13-60) 11/11/23 14:35 HCG, Qual Negative (Negative) 11/11/23 14:35 Urine Color Yellow (Yellow) 11/11/23 16:23 Urine Appearance Clear (CLEAR) 11/11/23 16:23 Urine pH 5 (5-7) 11/11/23 16:23 Ur Specific [place] 1.020 (1.005-1.030) 11/11/23 16:23 Urine Protein Neg (Negative) 11/11/23 16:23 Urine Glucose (UA) Norm (Normal) 11/11/23 16:23 Urine Ketones 1+ (Negative) H 11/11/23 16:23 Urine Blood Neg (Negative) 11/11/23 16:23 Urine Nitrate Negative (Negative) 11/11/23 16:23 Urine Bilirubin Neg (Negative) 11/11/23 16:23 Urine Urobilinogen Norm mg/dL (Negative) 11/11/23 16:23 Ur Leukocyte Esterase Negative (Negative) 11/11/23 16:23 Discharge Plan Discharge Patient Disposition: Home Clinical Impression: Gastroenteritis, Blood in stool Condition: Stable Prescriptions: New ondansetron 4 mg tablet,disintegrating 4 mg PO Q8H PRN (Reason: nausea and vomiting) Qty: 10 0RF dicyclomine 20 mg tablet 20 mg PO TID PRN (Reason: abdominal pain) Qty: 10 0RF No Action 28 mg iron- 800 mcg Tablet 1 tab PO DAILY Discharge Orders: Discharge ED (Routine); Ordered 11/11/23 Ordered By: Brian Mccracken Referrals: Belinda Child MD [Primary Care Provider] - Discharge Diet: Usual diet Discharge Activity: Increase activity as tolerated Patient Instructions: Gastroenteritis (ED) Activity Restrictions/Additional Instructions: Drink plenty of water and fluids. Use ondansetron 1 tablet every 8 hours as needed for nausea and vomiting. Use dicyclomine 20 mg every 8 hours as needed for abdominal pain. Drink frequent sips of fluids to stay hydrated. Follow-up with primary care. Case management will contact you regarding follow-up appointment with surgeon for further evaluation of blood in stool that has been recurrent. Return to ED for new concerns or worsening symptoms such as fever greater than 100.4, worsening abdominal pain, or inability to hold fluids down. Coding Level of Care Code ED Acrobatic Dancer for Namita Romero
[2023-11-11 16:20] VITALS: RESP 15; O2SAT 98
[2023-11-11] MEDS: sodium chloride 0.9% 1,000 ML 999 ML IV (16:20)
[2023-11-11] MEDS: morphine 4 mg/mL SDV 1 mL IVP (16:20)
[2023-11-11] MEDS: ondansetron 2 mg/ML SDV 2 mL 4 MG IVP (16:20)
--- NOTE | 2023-11-11 16:22 | CTR_ITS ---
PROCEDURE INFORMATION: Exam: CT Abdomen And Pelvis With Contrast Exam date and time: 11/11/2023 5:00 PM Age: 28 years old Clinical indication: Nausea and vomiting and other: Blood in stool; Additional info: Abd pain, n/v, blood in stool TECHNIQUE: Imaging protocol: Computed tomography of the abdomen and pelvis with contrast. Radiation optimization: All CT scans at this facility use at least one of these dose optimization techniques: automated exposure control; mA and/or kV adjustment per patient size (includes targeted exams where dose is matched to clinical indication); or iterative reconstruction. Contrast material: OMNI 350; Contrast volume: 100 ml; Contrast route: INTRAVENOUS (IV); COMPARISON: OB limited [id number] 02/12/2023 10:29 AM RADIATION DOSE METRICS: Total DLP (mGy-cm): 471 FINDINGS: Liver: No acute findings Gallbladder and bile ducts: No acute findings. Pancreas: No ductal dilation. Spleen: No splenomegaly. Adrenal glands: No mass. Kidneys and ureters: No stones or hydronephrosis. Stomach and bowel: No obstruction. Fluid-filled loops of small bowel with mild wall thickening/enhancement. Appendix: No evidence of appendicitis. Intraperitoneal space: No free air. No significant fluid collection. Vasculature: No abdominal aortic aneurysm. Lymph nodes: No enlarged lymph nodes. Urinary bladder: Incompletely distended. Reproductive: Retroverted uterus. Bones/joints: No acute findings. Soft tissues: No acute findings. CT/CT abdomen pelvis w con* [id number] IMPRESSION: Findings suggestive of enteritis.
[2023-11-11 16:25] VITALS: BP 113/79; PULSE 80; RESP 16; O2SAT 99
[2023-11-11 16:47] LABS: Add Urine Microscopic? NO; Charge for UA Resulting for Rev
[2023-11-11 16:50] LABS: Urine Appearance Clear (CLEAR); Urine Color Yellow (Yellow); pH Urine 5 (5-7)
[2023-11-11 16:51] LABS: Bilirubin Urine Neg (Negative); Blood Urine Neg (Negative); Glucose Urine UA Norm (Normal); Ketones Urine 1+ (Negative); Leukocyte Esterase Urine Negative (Negative); Nitrate Urine Negative (Negative); Protein Urine Neg (Negative); Urobilinogen Urine Norm (Negative)
[2023-11-11] MEDS: iohexol 350 mg/mL 500 mL Btl (per mL) IV (17:04)
[2023-11-11 17:59] VITALS: BP 113/79; PULSE 80; RESP 16; TEMP 37.1; O2SAT 99
--- NOTE | 2023-11-12 07:26 | DCPLANNER ---
Message was sent to general surgery on 11/12/23 at 0737. Clinic to contact patient.
== END 2023-11-11 18:00 | disposition home or self-care (01) ==
PROVIDERS: Emergency Provider Nurse Practitioner Family; PCP Pediatrics Adolescent Medicine
DX: K52.9 Noninfective gastroenteritis and colitis, unspecified (principal); K92.1 Melena
CPT/HCPCS: 36415; 74177; 80053; 81003; 83690; 84703; 85025; 96374; 96375; 99285; J2270; J2405; J7030; Q9967

== ENCOUNTER 2023-12-16 07:41 | Day surgery (SDC) | payer MEDICAID, SELFPAY ==
[2023-12-16 07:55] VITALS: BP 116/75; PULSE 88; RESP 16; TEMP 36.7; O2SAT 97; BMI 25.8
[2023-12-16 07:59] LABS: OR HCG Qualitative Urine Negative (Negative)
[2023-12-16] MEDS: sodium chloride 0.9% 1,000 ML 30 ML IV (08:03)
--- NOTE | 2023-12-16 08:20 | ANES.PREANE2 ---
Pre-Anesthetic Assessment Height/Weight: Height 1.68 m Weight 72.575 kg Temp Pulse Resp BP Pulse Ox O2 Del Method 98.1 F 88 16 116/75 97 Room Air 12/16/23 07:55 12/16/23 07:55 12/16/23 07:55 12/16/23 07:55 12/16/23 07:55 12/16/23 07:55 Preop Diagnosis: blood in stool Operation Date: 12/16/23 08:45 Proposed Procedures p [id number] egd [id number] diagnostic colonoscopy K92.1(Not Applicable) - Sanjiv Alberto DO s Colonoscopy(Not Applicable) - Sanjiv Alberto DO Was Beta Gregory taken within 24 hours: N/A Was Clonidine taken within 24 hours: N/A Last intake: Intake Last Liquid Date 12/15/23 Last Liquid Time 21:00 Last Solid Date 12/14/23 Last Solid Time 19:00 Social No alcohol and No tobacco Exam alert, oriented x 3, clear to auscultation bilaterally and regular rate & rhythm Airway Submandibular: within normal limits Cervical ROM: within normal limits Mallampati: Class I History/ROS No significant history except as noted Pulmonary None reported CV/HEM None reported None reported Hepatic None reported GI Gastroesophageal Reflux Disease Metabolic None reported Musc/skel None reported Neuropsych None reported Anesthetic Plan ASA status: 1 Anesthesia: Anesthesia Evaluation and General Other: Risk of > 500 ml blood loss (7ml/kg in children): Yes, adequate IV access and fluids planned Medications/Allergies Home Medications Medication Instructions Recorded Confirmed Last Taken Type vit no.95-ferrous 1 tab PO DAILY 11/11/23 12/16/23 12/14/23 History fumarate 28 mg-folic acid 800 mcg tablet () hydrocortisone 2.5 % topical cream 1 applic MA QID PRN hemorrhoids 10 11/19/23 12/16/23 12/14/23 Rx with perineal applicator days #30 grams (Anusol-HC) Allergies Allergy/AdvReac Type Severity Reaction Status Date / Time No Known Allergies Allergy Verified 12/16/23 07:52 Current Medications Generic Name Dose Route Start Last Admin Trade Name Freq PRN Reason Stop Dose Admin Sodium Chloride 1,000 mls @ 30 mls/hr 12/16/23 07:45 12/16/23 08:03 Sodium Chloride 0.9% IV 12/17/23 07:44 30 mls/hr .Q24H MALCOLM Administration PFSH Anesthesia Medical History No pertinent past medical history neghx: htn,dm,thyroid,dvt/pe PCP: [facility] Surgical History Hx of wisdom tooth extraction (~2018) Family History Father Diabetes Mother Hypertension Thyroid disease Denies family history of Colon cancer Ovarian cancer Heart disease Hypercholesteremia Breast cancer Uterine cancer Stroke Social History Smoking and tobacco/nicotine status: former use of tobacco/nicotine Alcohol intake: never Data Anesthesia Cardiac Studies: No Data to Display
--- NOTE | 2023-12-16 08:39 | W.PM.OPSUD ---
Surgery/Procedure H&P Update DATE OF PROCEDURE: December 16, 2023 DATE H&P PERFORMED: 11/19/23 H&P UPDATE INFORMATION: I have reviewed H&P completed within last 30 days, I have examined patient prior to procedure and No changes to prior documentation PREOP DIAGNOSIS: blood in stool PLANNED PROCEDURE: Operation Date: 12/16/23 08:45 Proposed Procedures p [id number] egd [id number] diagnostic colonoscopy K92.1(Not Applicable) - DO fany Massey Colonoscopy(Not Applicable) - Sanjiv Alberto DO
[2023-12-16 09:00] VITALS: BP 91/48; PULSE 82; RESP 14; TEMP 36.1; O2SAT 97
[2023-12-16 09:05] VITALS: BP 97/56; PULSE 78; RESP 20; O2SAT 100
[2023-12-16 09:15] VITALS: BP 101/68; PULSE 91; RESP 20; O2SAT 100
--- NOTE | 2023-12-16 14:48 | ANE.PACU2 ---
Inpatient post-anesthesia follow up: Airway intact: Yes Vital signs: Temperature 97.0 F Pulse Rate 91 Respiratory Rate 20 Blood Pressure 101/68 Pulse Oximetry 100 Oxygen Delivery Me thod Room Air Oxygen Flow Rate Fraction of Inspir ed Oxygen Hydration adequate: Yes Nausea and vomiting: No Pain level: 2 Mental status: Baseline
== END 2023-12-16 09:32 | disposition home or self-care (01) ==
PROVIDERS: Anesthesiology; PCP Nurse Practitioner Family; Visit Provider Surgery
PROC: 0DJ08ZZ Inspection of Upper Intestinal Tract, Via Natural or Artificial Opening Endoscopic (ICD-10-PCS; CPT 43235; principal; 2023-12-16 08:45)
PROC: 0DJD8ZZ Inspection of Lower Intestinal Tract, Via Natural or Artificial Opening Endoscopic (ICD-10-PCS; CPT 45378; 2023-12-16 08:45)
DX: K92.1 Melena (principal); K64.8 Other hemorrhoids; K21.9 Gastro-esophageal reflux disease without esophagitis; Z87.891 Personal history of nicotine dependence; Z80.0 Family history of malignant neoplasm of digestive organs
CPT/HCPCS: 43239; 45378; 81025; 84703; 88305; J2704; J3010; J7030

== ENCOUNTER 2024-11-24 13:27 | Outpatient (CLI) | payer MEDICAID, SELFPAY ==
--- NOTE | 2024-11-24 13:37 | USR_ITS ---
PROCEDURE INFORMATION: Exam: US First Trimester, Transabdominal Exam date and time: 11/24/2024 1:50 PM Age: 29 years old Clinical indication: Screening exam; Routine US, uterus; Additional info: Supervision of other normal , first trimester LABS AND CLINICAL REPORTS: Last menstrual period start date: 09/01/2024 Gestational age (Established): 12 w 0 d Estimated due date (Established): 06/08/2025 TECHNIQUE: Imaging protocol: Real-time transabdominal obstetrical ultrasound of the maternal pelvis and a first trimester , less than 14 weeks 0 days, with image documentation. COMPARISON: US OB limited [id number] 02/12/2023 10:29 AM FINDINGS: GESTATION: Gestation: Single intrauterine gestation. Embryo/ cardiac activity (BPM): 144 bpm. Extra-embryonic membranes/Placenta: Grade 1 anterior placenta. Amniotic/Chorionic fluid: Amniotic and extra-amniotic fluid are normal for gestational age. BIOMETRY: Gestational age (AUA): 16 weeks 0 days Estimated due date (AUA): 05/11/2025 by current ultrasound (06/08/2025 by LMP ) Estimated weight: 143 g (greater than 97th percentile) Biparietal diameter (BPD): 3.1 cm (15 weeks 6 days, greater than 97th percentile) Head circumference (HC): 12.2 cm (16 weeks 0 days, greater than 97th percentile) Abdominal circumference (AC): 10.1 cm (16 weeks 1 day, greater than 97th percentile) Femur length (FL): 2 cm (16 weeks 0 days, greater than 97th percentile) MATERNAL: Uterus: Unremarkable. Cervix: Obscured. Right ovary/adnexa: Obscured by lack of adequate acoustic window. Left ovary/adnexa: Obscured by lack of adequate acoustic window. Intraperitoneal space: No intraperitoneal free fluid. US/US OB <= 14 weeks fetus [id number] IMPRESSION: 1. Single intrauterine gestation. cardiac activity is present. 2. Estimated gestational age is 16 weeks 0 days by current ultrasound for MICHAEL of 05/11/2025. MCIHAEL by LMP is 06/08/2025 (non concordant).
== END 2024-11-24 13:28 | disposition home or self-care (01) ==
LOC: RAD 13:28
PROVIDERS: PCP Nurse Practitioner Family; Visit Provider Family Medicine
DX: Z34.82 Encounter for supervision of other normal pregnancy, second trimester (principal); Z3A.16 16 weeks gestation of pregnancy
CPT/HCPCS: 76801

== ENCOUNTER 2024-12-15 10:17 | Outpatient (CLI) | payer MEDICAID, SELFPAY ==
--- NOTE | 2024-12-15 10:30 | USR_ITS ---
PROCEDURE INFORMATION: Exam: US After First Trimester, Transabdominal Exam date and time: 12/15/2024 10:40 AM Age: 29 years old Clinical indication: Screening exam; Routine US, uterus; Additional info: Encounter for supervision of normal , second term LABS AND CLINICAL REPORTS: Gestational age (Established): 19 w 0 d Estimated due date (Established): 05/11/2025 TECHNIQUE: Imaging protocol: Real-time transabdominal obstetrical ultrasound of the maternal pelvis and a second or third trimester with image documentation. COMPARISON: US OB <= 14 weeks fetus [id number] 11/24/2024 1:50 PM FINDINGS: Gestation: Single live intrauterine gestation. heart rate: 142 bpm presentation and position: Breech presentation. Placenta: Unremarkable. No subchorionic bleed. Placenta is anterior fundal. Amniotic fluid (Qualitative): Amniotic fluid is normal for gestational age. Amniotic fluid index: Not calculated ANATOMY: midline falx: Normal cerebellum: Normal lateral ventricles: Normal cisterna magna: Normal choroid plexus: Normal face: Upper lip is normal heart four-chamber view, heart size and position: Obscured by position heart right ventricular outflow tract: Normal heart left ventricular outflow tract: Normal kidneys: Normal stomach: Normal urinary bladder: Normal spine: Normal Umbilical cord and insertion: Normal upper limbs: Normal lower limbs: Normal external genitalia: Obscured by position BIOMETRY: Gestational age (AUA): 18 weeks and 6 days Estimated due date (AUA): 05/12/2025 Estimated weight: 263.6 g. EFW by AC, BPD, FL, HC, Hadlock 1985 Biparietal diameter (BPD): 4.31 cm. EGA (BPD) is 19 w 0 d. 52.4 % percentile Head circumference (HC): 15.98 cm. EGA (HC) is 18 w 6 d. 33.3 % percentile Abdominal circumference (AC): 13.54 cm. EGA (AC) is 19 w 0 d. 45.6 % percentile Femur length (FL): 2.87 cm. EGA (FL) is 18 w 6 d. 36.2 % percentile HC/AC: 1.18. (Normal range: 1.09 - 1.26) FL/HC: 17.96. (Normal range: 16.06 - 18.26) FL/BPD: 66.59 FL/AC: 21.2 MATERNAL: Uterus: Unremarkable. Cervix: Cervical length measures 3.9 cm. The cervix is closed. Right ovary/adnexa: Obscured by lack of adequate acoustic window. Left ovary/adnexa: Obscured by lack of adequate acoustic window. Intraperitoneal space: No intraperitoneal free fluid. US/US OB >= 14 weeks fetus [id number] IMPRESSION: Single live intrauterine gestation with estimated gestational age of 18 weeks and 6 days. No gross abnormalities.
== END 2024-12-15 10:18 | disposition home or self-care (01) ==
LOC: RAD 10:18
PROVIDERS: PCP Family Medicine; Visit Provider Family Medicine
DX: Z34.82 Encounter for supervision of other normal pregnancy, second trimester (principal); Z3A.18 18 weeks gestation of pregnancy
CPT/HCPCS: 76805

== ENCOUNTER 2025-03-19 11:37 | Outpatient (CLI) | payer MEDICAID, SELFPAY ==
[2025-03-19 11:47] VITALS: BP 130/72; PULSE 97
[2025-03-19 12:02] VITALS: BMI 28.2
[2025-03-19 12:04] LABS: Nitrazine Paper, PH Inconclusive
[2025-03-19 12:15] LABS: Actim Prom Negative
[2025-03-19 12:39] LABS: Bacteria Urine 2+ /hpf; Hyaline Casts Urine 0-4 /lpf; RBC Urine >100 /hpf (0-2)
[2025-03-19 12:41] LABS: Add Urine Microscopic? YES; Bilirubin Urine Neg (Negative); Blood Urine 3+ (Negative); Glucose Urine UA Norm (Normal); Ketones Urine Negative (Negative); Leukocyte Esterase Urine 2+ (Negative); Nitrate Urine Negative (Negative); Protein Urine Neg (Negative); Urine Appearance Cloudy (CLEAR); Urine Color Yellow (Yellow); Urobilinogen Urine Neg (Negative); pH Urine 8 (5-7)
[2025-03-19 13:01] VITALS: BP 105/53; PULSE 98
--- NOTE | 2025-03-19 13:05 | PC.NURSE ---
This nurse unhooked patient from monitor and went over discharge instructions verbally before telling patient she could get dressed. This nurse stated to the patient that she would return with her paperwork after it was printed. This nurse went back into patient room to obtain signature and give physical copy of discharge and patient had already left the room. This nurse checked the bathroom and patient was not there either. Verbal discharge instructions were given and medication to be called into pharmacy discussed. Patient had no questions.
== END 2025-03-19 13:10 | disposition home or self-care (01) ==
LOC: OPOB 11:38 → OBGYN 11:39
PROVIDERS: PCP Family Medicine; Visit Provider Family Medicine
DX: O26.899 Other specified pregnancy related conditions, unspecified trimester (principal); Z3A.00 Weeks of gestation of pregnancy not specified; N89.8 Other specified noninflammatory disorders of vagina; R10.9 Unspecified abdominal pain
CPT/HCPCS: 81001; 83986; 84112

== ENCOUNTER 2025-03-21 13:24 | Outpatient (CLI) | payer MEDICAID, SELFPAY ==
--- NOTE | 2025-03-21 13:28 | USR_ITS ---
PROCEDURE INFORMATION: Exam: US , Follow up Exam date and time: 03/21/2025 1:47 PM Age: 29 years old Clinical indication: Screening exam; Routine US, uterus; Additional info: Incomplete anatomy scan/3rd trimester/growth check LABS AND CLINICAL REPORTS: Gestational age (Established): 32 w 5 d Estimated due date (Established): 05/11/2025 TECHNIQUE: Imaging protocol: Transabdominal ultrasound of the uterus, real time with image documentation. Follow-up (eg, re-evaluation of size by measuring standard growth parameters and amniotic fluid volume, re-evaluation of organ system(s) suspected or confirmed to be abnormal on a previous scan). COMPARISON: US OB >= 14 weeks fetus [id number] 12/15/2024 10:40 AM FINDINGS: Gestation: Intrauterine gestation. heart rate: 148 bpm presentation and position: Cephalic. Placenta: Posterior without evidence of previa. ANATOMY: heart four-chamber view, heart size and position: four-chamber heart: Normal. BIOMETRY: Gestational age (AUA): 33 weeks 0 days. Estimated due date (AUA): 05/09/2025. Estimated weight: 2079.56 g. EFW by AC, BPD, FL, HC, Hadlock 1985 Biparietal diameter (BPD): 8.35 cm. EGA (BPD) is 33 w 4 d. 69.5 % percentile Head circumference (HC): 29.7 cm. EGA (HC) is 32 w 6 d. 17.6 % percentile Abdominal circumference (AC): 29.08 cm. EGA (AC) is 33 w 1 d. 61.5 % percentile Femur length (FL): 6.27 cm. EGA (FL) is 32 w 3 d. 30.8 % percentile HC/AC: 1.02. (Normal range: 0.96 - 1.11) FL/HC: 21.11. (Normal range: 19.9 - 21.5) FL/BPD: 75.09. (Normal range: 71 - 87) FL/AC: 21.56. (Normal range: 20 - 24) MATERNAL: Cervix: Cervical length measures 3.4 cm. US/[place] [id number] IMPRESSION: 1. Single live intrauterine with normal heart rate. 2. Estimated gestational age 33 weeks 0 days.
== END 2025-03-21 13:25 | disposition home or self-care (01) ==
PROVIDERS: PCP Family Medicine; Visit Provider Family Medicine
DX: Z34.83 Encounter for supervision of other normal pregnancy, third trimester (principal); Z3A.33 33 weeks gestation of pregnancy
CPT/HCPCS: 76816

== ENCOUNTER 2025-03-30 12:30 | Outpatient (CLI) | payer MEDICAID, SELFPAY ==
[2025-03-30 12:40] VITALS: RESP 18
[2025-03-30 12:42] VITALS: BP 135/82; PULSE 109
[2025-03-30 12:50] VITALS: RESP 18; BMI 28.2
[2025-03-30 12:56] LABS: Nitrazine Paper, PH Negative
[2025-03-30 13:05] VITALS: BP 128/66; PULSE 93
== END 2025-03-30 13:30 | disposition home or self-care (01) ==
LOC: OPOB 12:39 → OBGYN 12:40
PROVIDERS: PCP Family Medicine; Visit Provider Family Medicine
DX: O26.899 Other specified pregnancy related conditions, unspecified trimester (principal); Z3A.00 Weeks of gestation of pregnancy not specified; R10.9 Unspecified abdominal pain
CPT/HCPCS: 59025; 83986; 99211

== ENCOUNTER 2025-04-21 06:34 | Outpatient (CLI) | payer MEDICAID, SELFPAY ==
[2025-04-21] VITALS (8 sets, daily range): BP systolic 116–123; BP diastolic 61–81; PULSE 87–109; RESP 18
[2025-04-21 07:42] LABS: Bilirubin Urine Negative (Negative); Blood Urine 1+ (Negative); Glucose Urine UA Negative (Normal); Ketones Urine Negative (Negative); Leukocyte Esterase Urine 3+ (Negative); Nitrate Urine Negative (Negative); Protein Urine Trace (Negative); Specific Gravity, Urine 1.013 (1.005-1.030); Urine Appearance Cloudy (CLEAR); Urine Color Yellow (Yellow); Urobilinogen Urine 0.2 mg/dL (Negative)
[2025-04-21 07:45] LABS: Bacteria Urine 4+ /hpf; Squamous Epithelial Cell Urine 21-50 /hpf (0-5); WBC Urine 21-50 /hpf (0-5)
[2025-04-21] MEDS: acetaminophen 500 mg Tablet 1000 MG PO (07:50)
[2025-04-21] MEDS: hyDROXYzine 25 mg Capsule 50 MG PO (07:50)
[2025-04-21 08:10] LABS: Add Urine Culture? Yes; UA Slide Review UA Slide Review Perf
== END 2025-04-21 08:40 | disposition home or self-care (01) ==
LOC: OPOB 06:39 → OBGYN 06:39
PROVIDERS: PCP Family Medicine; Visit Provider Family Medicine
DX: O26.899 Other specified pregnancy related conditions, unspecified trimester (principal); Z3A.00 Weeks of gestation of pregnancy not specified; M54.9 Dorsalgia, unspecified
CPT/HCPCS: 59025; 81001; 83986; 87086; 99211; J9999

== ENCOUNTER 2025-04-24 15:45 | Outpatient (CLI) | payer MEDICAID, SELFPAY ==
--- NOTE | 2025-04-24 15:49 | USR_ITS ---
PROCEDURE INFORMATION: Exam: US , Follow up Exam date and time: 04/24/2025 3:56 PM Age: 29 years old Clinical indication: Screening exam; Routine US, uterus; Additional info: Growth LABS AND CLINICAL REPORTS: Gestational age (Established): 37 w 4 d Estimated due date (Established): 05/11/2025 TECHNIQUE: Imaging protocol: Transabdominal ultrasound of the uterus, real time with image documentation. Follow-up (eg, re-evaluation of size by measuring standard growth parameters and amniotic fluid volume, re-evaluation of organ system(s) suspected or confirmed to be abnormal on a previous scan). COMPARISON: [place] [id number] 03/21/2025 1:47 PM FINDINGS: Gestation: Single viable IUP in cephalic presentation. Posterior placenta. No gross abnormality noted. Gestational age is 37 weeks 5 days with an MICHAEL of 05/10/2025. heart rate: 142 bpm Amniotic fluid index: BOBBY is 9.2 cm. BIOMETRY: Estimated weight: 3289.12 g. EFW by AC, BPD, FL, HC, [place] 1985 64th percentile Biparietal diameter (BPD): 9.27 cm. EGA (BPD) is 37 w 5 d. 72.7 % percentile Head circumference (HC): 33.01 cm. EGA (HC) is 37 w 4 d. 27.1 % percentile Abdominal circumference (AC): 33.88 cm. EGA (AC) is 37 w 5 d. 71.9 % percentile Femur length (FL): 7.36 cm. EGA (FL) is 37 w 5 d. 53.5 % percentile HC/AC: 0.97. (Normal range: 0.9 - 1.05) FL/HC: 22.3. (Normal range: 20.87 - 22.67) FL/BPD: 79.4. (Normal range: 71 - 87) FL/AC: 21.72. (Normal range: 20 - 24) MATERNAL: Cervix: Cervical length measures 3.6 cm. US/[place] [id number] IMPRESSION: Unremarkable viable IUP at 37 weeks 5 days
== END 2025-04-24 15:46 | disposition home or self-care (01) ==
PROVIDERS: PCP Family Medicine; Visit Provider Family Medicine
DX: O24.419 Gestational diabetes mellitus in pregnancy, unspecified control (principal)
CPT/HCPCS: 76816

== ENCOUNTER 2025-05-04 09:31 | Inpatient (IN) | payer MEDICAID, SELFPAY ==
[2025-05-04] VITALS (75 sets, daily range): BP systolic 101–141; BP diastolic 53–83; PULSE 69–102; RESP 17–18; O2SAT 97–100; BMI 27.6
[2025-05-04 09:59] LABS: Hematocrit 33.2 % (36-47); Hemoglobin 11.00 g/dL (11.27-16.99); Mean Corpuscular HGB Conc 33.1 g/dL (30-55); Mean Corpuscular Hemoglobin 30.2 pg (27-33); Mean Corpuscular Volume 91.2 fl (85-98); Nucleated Red Blood Cells % 0 %; Platelet Count 220 10^3/cmm (157-399); Red Blood Count 3.64 10^6/uL (3.85-5.65); White Blood Count 11.57 10^3/uL (3.29-11.43)
--- NOTE | 2025-05-04 12:16 | P.HP_ITS ---
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 PMHx includes depression/anxiety. course complicated by gestational diabetes- diet controlled. Denies cramping/contractions, LOF, vaginal bleeding. Good movement. care was good and starting in the first trimester. Growth ultrasounds have been with good growth- last US 04/24/25 with EFW 63th percentile. Present Details : 3 Para: 2 Labs Blood type OB HPI: O (+) positive Rubella: Immune RPR: Negative GBS: Negative HBsAG: Negative Other Lab Information: Antibody screen neg GC/Chlamydia neg UCx no growth Initial H/H 12.8/37.3 Hep C ab negative HIV negative 1hr GTT failed (178) 3hr GTT failed (88/184/195/153) [id number] wnl Review of Systems 2 Const: Denies: fever(s) or chills Card: Denies: chest pain or palpitations Resp: Denies: dyspnea, productive cough or non-productive cough GI: Denies: abdominal pain, nausea or vomiting : Denies: flank pain or difficulty voiding Psych: Denies: anxiety or depression Medications/Allergies Home Medications ?Medication ?Instructions ?Recorded ?Confirmed ?Last Taken ?Type vit no.95-ferrous 1 tab PO DAILY 11/11/2301/2405/04/25 08:00 History fumarate 28 mg-folic acid 800 mcg tablet () escitalopram oxalate 10 mg tablet 10 mg PO DAILY 05/0405/04/25 05/04/25 History 0800 Allergies Allergy/AdvReac Type Severity Reaction Status Date / Time No Known Allergies Allergy Verified 12/31/23 14:00 PFS PHARMACIST TECHNICIAN 2 PFSH: Medical History (Updated 05/04/25 @ 13:32 by Makenzie Terrazas DO) No pertinent past medical history neghx: htn,dm,thyroid,dvt/pe PCP: [facility] Surgical History (Updated 12/31/23 @ 14:13 by Sanjiv Alberto DO) History of esophagogastroduodenoscopy (EGD) 12/16/23 History of colonoscopy 12/16/23 Hx of wisdom tooth extraction (~2018) Family History Father Diabetes Mother Hypertension Thyroid disease Denies family history of Colon cancer Ovarian cancer Heart disease Hypercholesteremia Breast cancer Uterine cancer Stroke Social History Smoking and tobacco/nicotine status: former use of tobacco/nicotine Alcohol intake: never History History History 2 3 Term 2 0 Miscarriages/Ectopic 2 Living Children 2 Vitals/I&O/Wt Last Vital Signs Pulse 89 05/04/25 12:15 Resp 17 05/04/25 09:41 BP 114/69 05/04/25 12:15 O2 Del Method Room Air 05/04/25 08:55 Weight last 48 hrs Weight 171 lb Physical Exam 2 Const: COMMON NORMALS: no acute distress, healthy appearing and alert Resp: COMMON NORMALS: normal respiratory effort, No use of accessory muscles and clear to auscultation bilaterally AUSCULTATION: clear to auscultation bilaterally Cardio: COMMON NORMALS: regular rate and regular rhythm RATE: regular rate RHYTHM: regular rhythm GI: COMMON NORMALS: Normal to inspection, nondistended, normoactive bowel sounds present, Soft to palpation and non-tender PALPATION: Yes Soft to palpation : OTHER: Gravid uterus S=D Initial SVE per RN 250/-3 Neuro: SENSORIUM/ORIENTATION: Yes alert Psych: COMMON NORMALS: mental status grossly normal, Normal thought process present and cooperative Data 05/04/25 09:24 Results Labs OB ([facility]): 2 Obstetrics 04/24/25 Blood Type O Positive Today Antibody Screen Negative Today Hct, (36-47) 33.2 % L Today Hgb, (11.27-16.99) 11.00 g/dL L Today Rho(D) Type Rh positive Today Plt Count, (157-399) 220 10^3/cmm Today A&P Assessment and plan (1) Elective induction of labor planned: (2) Gestational diabetes: Plan 29yo at 39w0d presenting for elective induction of labor. Category I FHT. Routine CBC, blood typing GDMA1- has had good sugar control- plan for initial fingerstick glucose with repeat as indicated based on result. Plan for 1 dose cytotec with recheck in 4 hours and as indicated. Intermittent EFM as long as Category I FHT. May have epidural when desired, fentanyl per protocol for pain control prior. Discussed plan of care, informed consent, risks and benefits and she is agreeable to proceed. PDMP PDMP Reviewed: Not Reviewed Attestations 2 Medical Necessity Statement*: Abiola Chadwickarroll's hospital stay will require greater than 2 midnights for routine labor and delivery and care. Coding Level of Care Code Acute Code for Chg Fwd Diagnoses Elective induction of labor planned Gestational diabetes O24.419
[2025-05-04] MEDS: oxytocin 30 UNIT/500 ML BAG IV (14:17)
[2025-05-04] MEDS: ROPivacaine premix 200 MG/100 ML PREMIX 10 MG EPIDURAL (15:55)
--- NOTE | 2025-05-04 15:59 | ANES.PREANE2 ---
Pre-Anesthetic Assessment Height/Weight: Height 1.68 m Weight 77.564 kg Pulse Resp BP Pulse Ox O2 Del Method 75 17 117/55 99 Room Air 05/04/25 15:56 05/04/25 09:41 05/04/25 15:56 05/04/25 15:55 05/04/25 08:55 Preop Diagnosis: Epidural Familial anesthetic complications: none Was Beta Gregory taken within 24 hours: N/A Was Clonidine taken within 24 hours: N/A Last intake: water 1500 Social No alcohol and No tobacco Exam alert, oriented x 3, clear to auscultation bilaterally and regular rate & rhythm Airway Cervical ROM: within normal limits Mallampati: Class II Dentition: full History/ROS No significant history except as noted Pulmonary None reported CV/HEM None reported None reported Hepatic None reported GI Gastroesophageal Reflux Disease Metabolic Diabetes Mellitus (gestational) Musc/skel None reported Neuropsych None reported Anesthetic Plan ASA status: 2 Anesthesia: Eval. for regional block and Regional (specify below) (Epidural) Risk of > 500 ml blood loss (7ml/kg in children): No Medications/Allergies Home Medications ?Medication ?Instructions ?Recorded ?Confirmed ?Last Taken ?Type vit no.95-ferrous 1 tab PO DAILY 11/11/23 05/04/25 05/04/25 08:00 History fumarate 28 mg-folic acid 800 mcg tablet () escitalopram oxalate 10 mg tablet 10 mg PO DAILY 05/04/25 05/04/25 05/04/25 History 0800 Allergies Allergy/AdvReac Type Severity Reaction Status Date / Time No Known Allergies Allergy Verified 12/31/23 14:00 Current Medications Generic Name Dose Route Start Last Admin Trade Name Beatriz PRN Reason Stop Dose Admin Dextrose/Lactated Ringer's 1,000 mls @ 125 mls/hr 05/04/25 09:45 05/04/25 14:36 Dextrose 5%-Lactated Ringers IV 0 mls/hr .Q8H MALCOLM Infusion Lactated Ringer's 1,000 mls @ 999 mls/hr 05/04/25 09:41 05/04/25 14:36 Lactated Ringers IV 999 mls/hr .Q1H1M PRN Administration Per L&D Rescitation Protocol Oxytocin 30 unit in 500 mls @ 1 mls/hr 05/04/25 14:15 05/04/25 14:17 Pitocin IV 1 milliunit/min .Q24H MALCOLM 1 mls/hr Protocol Administration 1 MILLIUNIT/MIN PFSH Anesthesia Medical History (Updated 05/04/25 @ 13:32 by Makenzie Terrazas DO) No pertinent past medical history neghx: htn,dm,thyroid,dvt/pe PCP: [facility] Surgical History (Updated 12/31/23 @ 14:13 by Sanjiv Alberto DO) History of esophagogastroduodenoscopy (EGD) 12/16/23 History of colonoscopy 12/16/23 Hx of wisdom tooth extraction (~2018) Family History Father Diabetes Mother Hypertension Thyroid disease Denies family history of Colon cancer Ovarian cancer Heart disease Hypercholesteremia Breast cancer Uterine cancer Stroke Social History Smoking and tobacco/nicotine status: former use of tobacco/nicotine Alcohol intake: never Female Reproductive History : 3 Data Anesthesia 05/04/25 09:24 Short CBC 05/04/25 Range/Units 09:24 WBC 11.57 H (3.29-11.43) 10^3/uL Hgb 11.00 L (11.27-16.99) g/dL Hct 33.2 L (36-47) % MCV 91.2 (85-98) fl Plt Count 220 (157-399) 10^3/cmm Neut % (Auto) 71.7 % Neut # (Auto) 8.29 H (1.8-7.7) 10^3/uL Blood Bank 05/04/25 09:24 Blood Type O Positive Rho(D) Type Rh positive Antibody Screen Negative Anesthesia Procedures Epidural Time Out Performed: Yes Consents Signed: Procedure Consent Consent: from patient Lumbar Level: L3-L4 Epidural position: sitting Epidural procedure: sterile prep of area, 1% lidocaine to numb the area, 18 g needle, negative for paresthesia passed, neg for paresthesia, test dose given, 1.5% xylocaine 1:200k epi, 0.2% Ropivacaine bolus ml (5ml), placed PCEA, no systemic response, sterile dressing applied, L.U.D. no apparent complications and 0.2% Ropiavacaine @ mls/hr (10) Additional Comments: ELIAS at 4cm, easily placed. Pt. tolerated well
[2025-05-05] VITALS (29 sets, daily range): BP systolic 110–157; BP diastolic 59–82; PULSE 57–108; RESP 16; TEMP 36.8
[2025-05-05] MEDS: ROPivacaine premix 200 MG/100 ML PREMIX 10 MG EPIDURAL (00:15)
--- NOTE | 2025-05-05 03:45 | P.PCNOB_ITS ---
Delivery Note: Date of delivery: May 05, 2025 Pre-delivery diagnoses: Term Gestational Diabetes A1 Post-delivery diagnoses: Term delivery of viable male Procedure: Spontaneous Vaginal Delivery Delivering Physician: Makenzie Terrazas DO Estimated blood loss (mL): 100 Pre-Delivery Course: Admitted on 05/04/2025 with initial SVE of 2/50/-3. She was given 1 dose of Cytotec and rechecked after 4 hours with changed to 3/50/-3. Initially category 1 heart tones and did have 2-3 deep variables that resolved with position change and fluid bolus. heart tones then returned to category 1 and she was started on low-dose Pitocin. She gradually progressed. At 0119 SROM was noted with clear fluid and she then quickly progressed to complete. Delivery: Patient progressed to complete. Patient placed in lithotomy position. Patient pushed with adequate effort. Head delivered in OA position, loose nuchal cord was present and reduced without difficulty. Shoulders and rest of body delivered without difficulty with adequate epidural anesthesia. Mouth and nares bulb suctioned. placed on maternal abdomen. Cord clamped and cut after 1 minute delay. Placenta spontaneously delivered and noted to be intact. Pitocin started. Fundus was noted to be firm with massage. The vagina and cervix were inspected and periurethral abrasions and midline labial skin tear was noted. Skin tear became hemostatic with firm pressure applied and repair was not needed. Fundus was again noted to be firm. Male born at 0315 with 10/10 weighing 7 pounds 4 ounces and measuring 20.5 in length Placenta noted to be intact with centrally inserted umbilical cord and three- vessel cord-did note copious calcifications. Complications: Maternal none Infant none History History History 3 Term 3 0 Miscarriages/Ectopic 0 Living Children 3 A&P Assessment and plan (1) Spontaneous vaginal delivery: (2) Gestational diabetes: PDMP PDMP Reviewed: Not Reviewed Coding Level of Care Code Acute Code for Chg Fwd Diagnoses Gestational diabetes O24.419 Spontaneous vaginal delivery O80
[2025-05-05] MEDS: PRENATAL VIT NO.130/IRON/FOLIC 1 EACH TABLET PO (09:35)
[2025-05-05 15:11] LABS: Hematocrit 29.1 % (36-47); Hemoglobin 9.70 g/dL (11.27-16.99); Mean Corpuscular HGB Conc 33.3 g/dL (30-55); Mean Corpuscular Hemoglobin 30.7 pg (27-33); Mean Corpuscular Volume 92.1 fl (85-98); Platelet Count 171 10^3/cmm (157-399); Red Blood Count 3.16 10^6/uL (3.85-5.65); White Blood Count 11.70 10^3/uL (3.29-11.43)
[2025-05-06 04:21] VITALS: BP 110/66; PULSE 68
[2025-05-06 04:22] VITALS: TEMP 35.6
[2025-05-06] MEDS: PRENATAL VIT NO.130/IRON/FOLIC 1 EACH TABLET PO (08:39)
[2025-05-06 08:41] VITALS: BP 120/64; PULSE 70; RESP 15; TEMP 36.8
--- NOTE | 2025-05-06 10:59 | PM.OBGYDC ---
Discharge Providers RAG WILLOW OPERATOR Date of Admission: 05/04/25 09:31 Date of Discharge: 05/06/25 Attending Provider at Admission: Makenzie Terrazas DO Attending Provider at Discharge: Makenzie Terrazas DO Primary Care Provider: Makenzie Terrazas DO Diagnoses at Discharge Discharge Diagnosis (1) Gestational diabetes: Status: Acute (2) Spontaneous vaginal delivery: Status: Acute Reason for Visit Reason for Visit: IOL Hospital Course Hospital Course Pre-Delivery Course: Admitted on 05/04/2025 with initial SVE of 2/50/-3. She was given 1 dose of Cytotec and rechecked after 4 hours with changed to 3/50/-3. Initially category 1 heart tones and did have 2-3 deep variables that resolved with position change and fluid bolus. heart tones then returned to category 1 and she was started on low-dose Pitocin. She gradually progressed. At 0119 SROM was noted with clear fluid and she then quickly progressed to complete. Delivery: Patient progressed to complete. Patient placed in lithotomy position. Patient pushed with adequate effort. Head delivered in OA position, loose nuchal cord was present and reduced without difficulty. Shoulders and rest of body delivered without difficulty with adequate epidural anesthesia. Mouth and nares bulb suctioned. placed on maternal abdomen. Cord clamped and cut after 1 minute delay. Placenta spontaneously delivered and noted to be intact. Pitocin started. Fundus was noted to be firm with massage. The vagina and cervix were inspected and periurethral abrasions and midline labial skin tear was noted. Skin tear became hemostatic with firm pressure applied and repair was not needed. Fundus was again noted to be firm. Male born at 0315 with 10/10 weighing 7 pounds 4 ounces and measuring 20.5 in length Placenta noted to be intact with centrally inserted umbilical cord and three-vessel cord-did note copious calcifications. Complications: Maternal none Infant none course: Patient underwent on 05/05/25. course was uncomplicated. Following delivery patient ambulated well, tolerated a normal diet without nausea or vomiting. Pain was well-controlled on PO medications, no leg/calf pain, no calf/leg swelling, normal urination, passing gas and normal bowel movements. Vaginal bleeding thin lochia and decreasing. labs significant for hemoglobin of 9.7 down from 11.0 on admission. Follow-up planned for 2 and 6 weeks . Warning signs for endometritis, pre-eclampsia, DVT/PE, mastitis were reviewed, discussed additional warning signs including increased vaginal bleeding, worsening abdominal pain. Pelvic rest and activity precautions reviewed as well. She is discharged on 05/06/2025 in stable condition. Information Peripartum Data: Infant Delivery Method: Vaginal Physical Exam Const: COMMON NORMALS: no acute distress, healthy appearing and alert Resp: COMMON NORMALS: normal respiratory effort, No use of accessory muscles and clear to auscultation bilaterally AUSCULTATION: clear to auscultation bilaterally Cardio: COMMON NORMALS: regular rate and regular rhythm RATE: regular rate RHYTHM: regular rhythm GI: COMMON NORMALS: Normal to inspection, nondistended, normoactive bowel sounds present, Soft to palpation and non-tender PALPATION: Yes Soft to palpation : OTHER: Uterine fundus firm and below the umbilicus Neuro: SENSORIUM/ORIENTATION: Yes alert Psych: COMMON NORMALS: mental status grossly normal, Normal thought process present and cooperative THOUGHT PROCESS: Normal thought process present Urinary Catheter Management: Antonio Latex: Cath Placed During This Visit: yes, but has since been removed by the nurse Reason for Continuing Indwelling Catheter: Decision to DC Catheter Urinary Catheter Date of Insertion: 05/04/25 Urinary Catheter Time of Insertion: 16:15 Date Urinary Catheter Removed: 05/05/25 Time Urinary Catheter Discontinued: 03:13 History History History 3 Term 3 0 Miscarriages/Ectopic 0 Living Children 3 Discharge Data Studies Completed and Pending Laboratory Results WBC 11.70 10^3/uL (3.29-11.43) H 05/05/25 14:45 RBC 3.16 10^6/uL (3.85-5.65) L 05/05/25 14:45 Hgb 9.70 g/dL (11.27-16.99) L 05/05/25 14:45 Hct 29.1 % (36-47) L 05/05/25 14:45 MCV 92.1 fl (85-98) 05/05/25 14:45 MCH 30.7 pg (27-33) 05/05/25 14:45 MCHC 33.3 g/dL (30-55) 05/05/25 14:45 RDW 13.2 % (12.1-15.1) 05/05/25 14:45 Plt Count 171 10^3/cmm (157-399) 05/05/25 14:45 MPV 9.5 fL (7.4-10.4) 05/05/25 14:45 Neut % (Auto) 71.7 % 05/04/25 09:24 Lymph % (Auto) 18.4 % 05/04/25 09:24 [place] % (Auto) 5.4 % 05/04/25 09:24 Eos % (Auto) 2.6 % 05/04/25 09:24 Baso % (Auto) 0.3 % 05/04/25 09:24 Neut # (Auto) 8.29 10^3/uL (1.8-7.7) H 05/04/25 09:24 Lymph # (Auto) 2.1 10^3/uL (0.8-4.8) 05/04/25 09:24 [place] # (Auto) 0.6 10^3/uL (0.2-0.9) 05/04/25 09:24 Eos # (Auto) 0.3 10^3/uL (0.0-0.8) 05/04/25 09:24 Baso # (Auto) 0.0 10^3/uL (0.0-0.1) 05/04/25 09:24 Nucleated RBC % (auto) 0 % 05/04/25 09:24 Nucleated RBCs # 0.0 /100WBC 05/04/25 09:24 POC Glucose 91 mg/dL (70-110) 05/04/25 13:23 Blood Type O Positive 05/04/25 09:24 Rho(D) Type Rh positive 05/04/25 09:24 Antibody Screen Negative 05/04/25 09:24 Vitals Last Vital Signs Temp 98.3 F 05/06/25 08:41 Pulse 70 05/06/25 08:41 Resp 15 05/06/25 08:41 BP 120/64 05/06/25 08:41 Pulse Ox 99 05/04/25 16:20 O2 Del Method Room Air 05/04/25 08:55 Results Labs OB ([facility]): Obstetrics US 04/24/25 Blood Type O Positive 05/04/25 Antibody Screen Negative 05/04/25 Hct, (36-47) 29.1 % L 05/05/25 Hgb, (11.27-16.99) 9.70 g/dL L 05/05/25 Rho(D) Type Rh positive 05/04/25 Plt Count, (157-399) 171 10^3/cmm 05/05/25 HCG, Qual, (Negative) Negative 11/11/23 Micro Urine Specimen 04/21/25 Discharge Plan Discharge Patient Disposition: Home Condition: Stable Prescriptions: New ibuprofen 800 mg Tablet 800 mg PO TID Qty: 90 0RF docusate sodium 100 mg Capsule 100 mg PO BID Qty: 60 0RF Continued PNV cmb#95-ferrous fumarate-FA [] 28 mg iron- 800 mcg Tablet 1 tab PO DAILY escitalopram oxalate 10 mg tablet 10 mg PO DAILY Discharge Orders: Discharge Order (Routine); Ordered 05/06/25 Ordered By: Makenzie Terrazas Referrals: Makenzie Terrazas DO [Primary Care Provider, RAG WILLOW OPERATOR] Referral Note: CALL DR. TERRAZAS'S OFFICE ON THURSDAY AND MAKE FOLLOW UP APPOINTMENTS FOR YOURSELF FOR 2 WEEKS AND 6 WEEKS. Discharge Diet: Regular Discharge Activity: Increase activity as tolerated Patient Instructions: Depression (DC), Opioid Safety (DC), Preeclampsia and Eclampsia After Delivery (GEN), Hemorrhage (DC), OB Discharge Report, OB Food/Drug Interaction Guide, OB Care at Home, Opioid Safety, OB Vaginal Deliveries, Patient Portal & Derrick Instructions, Abnormal Bleeding Activity Restrictions/Additional Instructions: Pelvic rest for 6 weeks. Follow-up at 2 and 6 weeks Discharge Attestations RAG WILLOW OPERATOR Time Spent in Discharge Care*: greater than 30 min Coding Level of Care Code Acute Code for Chg Fwd Diagnoses Gestational diabetes O24.419 Spontaneous vaginal delivery O80
[2025-05-06 11:11] VITALS: BP 112/68; PULSE 62; TEMP 36
== END 2025-05-06 11:23 | disposition home or self-care (01) | DRG 807 ==
LOC: OPOB 09:31 → OBGYN 09:31
PROVIDERS: Admitting Provider Family Medicine; PCP Family Medicine; Visit Provider Family Medicine
DX: O24.420 Gestational diabetes mellitus in childbirth, diet controlled (principal); Z37.0 Single live birth; O69.81X0 Labor and delivery complicated by cord around neck, without compression, not applicable or unspecified; Z3A.37 37 weeks gestation of pregnancy
CPT/HCPCS: 36415; 36416; 51702; 59025; 59409; 82962; 85025; 85027; 86850; 86900; J2590; J2795; J7120; J7121; J9999

== ENCOUNTER → 2025-06-12 09:22 | Outpatient (BNVA) | payer MEDICAID, SELFPAY | PROVIDERS: PCP Family Medicine; Visit Provider Nurse Practitioner Women's Health | DX: Z30.9 Encounter for contraceptive management, unspecified (principal) | CPT/HCPCS: 81025 ==